=== PATIENT | male | born 1960 | race Two or more races ===

== ENCOUNTER 2023-01-04 08:15 | Inpatient (IN) | payer OTHER ==
[~2023-01-04] VITALS: Ht 177.8 cm; Wt 117.9 kg
[2023-01-04] MEDS ORDERED: COZAAR50 MG PO (09:56)
[2023-01-04] MEDS ORDERED: HYDROCHLOROTHIA25 MG PO (09:56)
[2023-01-04] MEDS ORDERED: DICLOFENAC-MIS1 EAC3 PO (09:57)
[2023-01-11] MEDS ORDERED: PERCOCET 5-3251 EACH PO (08:12)
[2023-01-11] MEDS ORDERED: ELIQUIS2.5 MG PO (08:12)
[2023-01-11] MEDS ORDERED: DUI500 PO (08:12)
== END 2023-01-12 19:52 | DRG 470 ==
LOC: SURG 01-10 06:34 → O/R 01-10 06:34 → SURG 01-10 08:15
PROVIDERS: ADMIT Orthopaedic Surgery; ATTEND Orthopaedic Surgery
PROC: 0SRB0JZ Replacement of Left Hip Joint with Synthetic Substitute, Open Approach (ICD-10-PCS; principal; 2023-01-10 15:00)
DX: M16.12 Unilateral primary osteoarthritis, left hip (principal); I10 Essential (primary) hypertension

== ENCOUNTER 2023-01-19 22:08 | Emergency (ER) | payer OTHER ==
[~2023-01-19] VITALS: Ht 170.2 cm; Wt 99.8 kg
[~2023-01-19 22:08] MED LIST: COZAAR50 MG PO; DICLOFENAC-MIS1 EAC3 PO; DUI500 PO; ELIQUIS2.5 MG PO; HYDROCHLOROTHIA25 MG PO; PERCOCET 5-3251 EACH PO
[2023-01-19] MEDS ORDERED: DURICEF (22:18)
[2023-01-19] MEDS ORDERED: INTEGRA F CAPS1 EACH (22:18)
[2023-01-20] MEDS ORDERED: ASA325 M1 PO (08:47)
== END 2023-01-20 12:57 | disposition home or self-care (01) ==
LOC: ER 22:08
PROVIDERS: General Practice
DX: M96.830 Postprocedural hemorrhage of a musculoskeletal structure following a musculoskeletal system procedure (principal); M16.12 Unilateral primary osteoarthritis, left hip; I10 Essential (primary) hypertension; D62 Acute posthemorrhagic anemia; Z96.642 Presence of left artificial hip joint

== ENCOUNTER 2024-06-14 12:46 | Inpatient (IN) | payer OTHER ==
[~2024-06-14] VITALS: Ht 177.8 cm; Wt 136.5 kg
[~2024-06-14 12:46] MED LIST changes: +ASA325 M1 PO; +DURICEF; +INTEGRA F CAPS1 EACH
[2024-06-14] MEDS ORDERED: CEFTRIAXONE SODIUM 1,000 MG VIAL IV ONE (13:30)
[2024-06-14] MEDS ORDERED: 0.9 % SODIUM CHLORIDE 1,000 ML IV SCH ×2 (13:30→19:45)
[2024-06-14] MEDS ORDERED: CEFTRIAXONE SODIUM 1,000 MG VIAL ONE (13:59)
[2024-06-14 14:49] LABS: INR 1.07; PARTIAL THROMBOPLASTIN TIME 37.8 SECONDS (22.0-34.0); PROTHROMBIN TIME 11.6 SECONDS (9.0-11.5)
[2024-06-14 14:51] LABS: CALCIUM 9.1 mg/dL (8.5-10.1); CREATININE SERUM 1.54 mg/dL (0.70-1.30); GFR 46.15; POTASSIUM 3.91 mEq/L (3.5-5.1)
[2024-06-14 15:01] LABS: HEMATOCRIT 40.4 % (39.0-48.0); HEMOGLOBIN 13.8 g/dL (13-16.00); MEAN CELL VOLUME 92.6 fL (80.0-100.00); MEAN CORPUSCULAR HEMOGLOBIN 31.7 pg (27.00-32.0); MEAN CORPUSCULAR HGB CONC 34.2 g/dl (32.0-36.0); PLATELET COUNT 232 K/uL (150-450); RED BLOOD COUNT 4.36 M/uL (4.00-6.00); RED CELL DISTRIBUTION WIDTH 13.5 % (11.5-14.5)
[2024-06-14 18:40] LABS: URINE APPEARANCE Clear; URINE BILIRRUBIN Negative (NEGATIVE); URINE BLOOD NHT; URINE COLOR Yellow; URINE GLUCOSE Negative (NEGATIVE); URINE KETONE Trace (NEGATIVE); URINE LEUKOCYTE Negative; URINE NITRATE Negative; URINE PROTEIN 30 (NEGATIVE)
[2024-06-14 18:44] LABS: URINE EPITHELIAL CELLS 10.9 uL (0.0-38.8); URINE RBC 103.9 uL (0.0-20.8); URINE WBC 9.4 uL (0.0-23.2)
[2024-06-14 19:15] LABS: URINE CAST 0.73 uL (0.0-1.40)
[2024-06-14] MEDS ORDERED: CEFTRIAXONE SODIUM 2,000 MG in 0.9 % SODIUM CHLORIDE 100 ML IV SCH (19:38)
[2024-06-14] MEDS ORDERED: hydrALAZINE HCL 25 MG TABLET PO SCH (19:41)
[2024-06-14] MEDS ORDERED: APIXABAN 2.5 MG TABLET PO SCH (19:41)
[2024-06-14] MEDS ORDERED: LOSARTAN POTASSIUM 50 MG TABLET PO SCH (19:41)
[2024-06-14] MEDS ORDERED: ACETAMINOPHEN 500 MG GEL..CAP PO PRN (19:45)
[2024-06-14] MEDS ORDERED: FAMOTIDINE/PF 20 MG in 0.9 % SODIUM CHLORIDE 8 ML IV PUSH SCH (21:00)
[2024-06-15] VITALS: BP 139/93; O2SAT 97
[2024-06-15 03:00] VITALS: BP 148/68
[2024-06-15 07:55] LABS: ALBUMIN 2.8 gm/dL (3.4-5.0); CALCIUM 8.6 mg/dL (8.5-10.1); CREATININE SERUM 1.15 mg/dL (0.70-1.30); GFR 64.65; PHOSPHOROUS 2.6 mg/dL (2.5-4.9); POTASSIUM 4.12 mEq/L (3.5-5.1)
[2024-06-15 08:35] VITALS: BP 160/70
[2024-06-15 16:00] VITALS: BP 168/81; O2SAT 98
[2024-06-15] MEDS ORDERED: VANCOMYCIN HCL 1,000 MG VIAL IV SCH (18:54)
[2024-06-15] MEDS ORDERED: ENALAPRILAT DIHYDRATE 1.25 MG/ML VIAL IV PRN (19:00)
[2024-06-16 01:57] VITALS: BP 170/72; O2SAT 94
[2024-06-16 08:40] VITALS: BP 140/89; O2SAT 98
[2024-06-16 16:00] VITALS: BP 180/94; O2SAT 98
[2024-06-17 01:32] VITALS: BP 146/100
[2024-06-17 08:37] VITALS: BP 151/86
[2024-06-17] MEDS ORDERED: LACTOBACILLUS ACIDOPHILUS 1 CAP CAP PO SCH (17:00)
[2024-06-17] MEDS ORDERED: LINEZOLID 600 MG TABLET PO SCH (17:00)
[2024-06-17 17:01] VITALS: BP 155/72; O2SAT 96
[2024-06-17] MEDS ORDERED: PIPERACILLIN/TAZOBACTAM SODIUM 3.375 GM in DEXTROSE 5 % IN WATER 100 ML IV SCH (18:00)
[2024-06-17] MEDS ORDERED: FAMOtidine 20 MG TABLET PO SCH (21:00)
[2024-06-18 00:48] VITALS: BP 160/90; O2SAT 96
[2024-06-18 04:42] LABS: HEMOGLOBIN 14.2 g/dL (13-16.00); MEAN CELL VOLUME 92.2 fL (80.0-100.00); MEAN CORPUSCULAR HEMOGLOBIN 31.9 pg (27.00-32.0); MEAN CORPUSCULAR HGB CONC 34.6 g/dl (32.0-36.0); PLATELET COUNT 297 K/uL (150-450); RED BLOOD COUNT 4.44 M/uL (4.00-6.00); RED CELL DISTRIBUTION WIDTH 13.8 % (11.5-14.5)
[2024-06-18 05:06] LABS: BILIRUBIN TOTAL 1.14 mg/dL (0.3-1.2); C-REACTIVE PROTEIN 5.48 MG/DL (0.00-0.29); CALCIUM 9.1 mg/dL (8.5-10.1); CREATININE SERUM 1.33 mg/dL (0.70-1.30); GFR 54.66; GLOBULINA 4.1 G/DL (2.4-3.5); PHOSPHOROUS 3.3 mg/dL (2.5-4.9); POTASSIUM 4.45 mEq/L (3.5-5.1); TOTAL PROTEIN 7.1 gm/dL (6.4-8.2)
[2024-06-18] MEDS ORDERED: SODIUM CHLORIDE 0.45 % 1,000 ML IV SCH (07:45)
[2024-06-18 08:15] VITALS: BP 174/95; O2SAT 97
[2024-06-18] MEDS ORDERED: LOSARTAN POTASSIUM 100 MG TABLET PO SCH (09:00)
[2024-06-18] MEDS ORDERED: RIVAROXABAN 10 MG TAB PO SCH (09:00)
[2024-06-18 16:30] VITALS: BP 164/79; O2SAT 98
[2024-06-19 00:12] VITALS: BP 160/88; BP 181/99
[2024-06-19 06:51] VITALS: BP 164/90; BP 180/60
[2024-06-19] MEDS ORDERED: hydrALAZINE HCL 20 MG VIAL IV PRN (08:00)
[2024-06-19 08:57] VITALS: BP 160/89; O2SAT 94
[2024-06-19 12:06] VITALS: BP 140/83
[2024-06-19] MEDS ORDERED: AMLODIPINE BESYLATE 5 MG TABLET PO SCH (17:00)
[2024-06-19 17:22] VITALS: BP 160/83
[2024-06-20 00:18] VITALS: BP 134/71; O2SAT 96
[2024-06-20 08:52] VITALS: BP 120/60; O2SAT 97
[2024-06-20 13:42] LABS: HEMATOCRIT 42.2 % (39.0-48.0); HEMOGLOBIN 14.1 g/dL (13-16.00); MEAN CELL VOLUME 93.1 fL (80.0-100.00); MEAN CORPUSCULAR HEMOGLOBIN 31.1 pg (27.00-32.0); MEAN CORPUSCULAR HGB CONC 33.4 g/dl (32.0-36.0); PLATELET COUNT 338 K/uL (150-450); RED BLOOD COUNT 4.53 M/uL (4.00-6.00); RED CELL DISTRIBUTION WIDTH 13.9 % (11.5-14.5)
[2024-06-20 14:54] LABS: ALBUMIN 3.2 gm/dL (3.4-5.0); CALCIUM 9.1 mg/dL (8.5-10.1); CREATININE SERUM 1.37 mg/dL (0.70-1.30); GFR 52.82; POTASSIUM 4.43 mEq/L (3.5-5.1); TOTAL PROTEIN 7.2 gm/dL (6.4-8.2)
[2024-06-20 17:05] VITALS: BP 140/85
[2024-06-21 00:13] VITALS: BP 149/80
[2024-06-21 09:08] VITALS: BP 132/72; O2SAT 98
[2024-06-21 16:43] VITALS: BP 153/84; O2SAT 97
[2024-06-22 01:57] VITALS: BP 190/90
[2024-06-22 08:02] VITALS: BP 125/80
[2024-06-22] MEDS ORDERED: PIPERACILLIN/TAZOBACTAM SODIUM 3.375 GM VIAL IV ONE (11:01)
[2024-06-22 17:22] VITALS: BP 177/85; O2SAT 98
== END 2024-06-22 18:33 | disposition home or self-care (01) | DRG 603 ==
LOC: ER 12:48 → MEDI 20:35
PROVIDERS: Emergency Medicine; General Practice; Internal Medicine Infectious Disease; ADMIT Internal Medicine; ATTEND Internal Medicine
PROC: B54BZZZ Ultrasonography of Right Lower Extremity Veins (ICD-10-PCS; principal; 2024-06-14)
DX: L03.115 Cellulitis of right lower limb (principal); N17.9 Acute kidney failure, unspecified; I10 Essential (primary) hypertension; M19.90 Unspecified osteoarthritis, unspecified site; E66.9 Obesity, unspecified